=== PATIENT | male | born 1945 | race Caucasian/White ===

== ENCOUNTER → 2023-06-18 07:00 | Outpatient (BNV) | payer MEDICARE, SELFPAY | PROVIDERS: Admitting Provider Family Medicine; Emergency Provider Emergency Medicine; PCP Internal Medicine; Visit Provider Internal Medicine Cardiovascular Disease | DX: I34.0 Nonrheumatic mitral (valve) insufficiency (principal); I34.81 Nonrheumatic mitral (valve) annulus calcification | CPT/HCPCS: 93306 ==

== ENCOUNTER 2023-06-18 08:36 | Inpatient (IN) | payer MEDICARE, SELFPAY ==
[2023-06-18] VITALS (16 sets, daily range): BP systolic 106–142; BP diastolic 39–66; PULSE 55–66; RESP 14–21; TEMP 35.8–36.6; O2SAT 96–98; BMI 25.7; BMI 25.3
--- NOTE | ~2023-06-18 | XR_ITS ---
EXAMINATION: XR CHEST CLINICAL INFORMATION: 69-year-old male with shortness of breath COMPARISON: 04/19/2019 TECHNIQUE: Frontal view of the chest was obtained. FINDINGS: Patient is status post median sternotomy for CABG. There is mild cardiomegaly. There is low lung volume bilaterally with vascular redistribution and there is blunting of left costophrenic angle due to small pleural effusion. XR/XR chest 1V IMPRESSION: CHF with small pleural effusions.
--- NOTE | 2023-06-18 07:00 | CA_ITS ---
Transthoracic Echocardiogram Patient (Last, First, Middle): Allan Diana, Gender: Male Date of : 1945 Age: 77 Procedure Date: 06/18/2023 Procedure Type: Transthoracic Echocardiogram Location: ER Height: 172.72 cm Weight: 81.19 kg BSA: 1.95 m2 Heart Rate: 64 bpm BP: 120 / 52 mmHg Systems Admin: SB Referring MD: Joni Encarnacion MD Symptoms: known CHF, acute exacerbation, Study Quality: Adequate w contrast ECG Rhythm: Sinus Conclusions: - 1. Normal LV ejection fraction 55-60% with grade 3 diastolic dysfunction 2. At least mildly dilated left atrium 3. Severe mitral calcification with mild mitral regurgitation 4. No gross pericardial effusion Findings Procedure Information Contrast agent, definity, is being given per protocol without apparent complications. Left Ventricle Normal left ventricular size and systolic function. There is mildly increased left ventricular wall thickness. The visually estimated ejection fraction is between 55-60%. Spectral Doppler is indicative of a restrictive filling pattern. E/E prime ratio is >15, consistent with elevated filling pressures. Evidence suggests grade III (severe) diastolic dysfunction. Wall Motion Rest Echo Findings The basal inferior and basal inferoseptal segments are akinetic. All other scored wall segments showed normal motion. Right Ventricle Normal right ventricular cavity size. There is moderate to severely decreased right ventricular systolic function. Atria The left atrium is mildly dilated. Interatrial shunt cannot be excluded. The right atrium is normal in size. Aortic Valve There is mild calcification of the aortic valve. There is no aortic valve stenosis. There is no aortic valve regurgitation. Mitral Valve There is mild anterior and severe posterior mitral leaflet thickening. The posterior mitral leaflet is immobile. There is severe mitral annular calcification. There is mild mitral valve regurgitation. There is no mitral valve stenosis. Pulmonic Valve The pulmonic valve is likely normal. There is trace to mild pulmonic valve regurgitation. Tricuspid Valve Normal tricuspid valve structure. There is mild tricuspid valve regurgitation. Great Vessels All visible segments of the aorta are normal in size. The pulmonary artery was not well visualized. There is no dilatation of the ascending aorta. Venous The inferior vena cava was not well visualized. Pericardium/Pleural There is no evidence of pericardial effusion. Prior Study Comparison Changes noted compared to prior study dated: 04/20/2019. IVC could not be visualized on this study and therefore RV systolic pressures are difficult control. Mitral regurgitation appears to be mild. Measurements 2D Linear Measurements IVSd: 1.09 0.6-0.9/0.6-1.0 cm LVIDd: 5.02 3.9-5.3/4.2-5.9 cm LVIDd Index: 2.57 2.4-3.2/2.2-3.1 cm/m2 LVIDs: 3.20 2.0-3.6 cm LVPWd: 0.58 0.7-1.1 cm LA Diam: 5.20 2.7-3.8/3.0-4.0 cm LAIDs Index: 2.67 1.5-2.3 cm/m2 LV Mass: 179.83 67-162/88-224 g LV Mass Index: 92.22 43-95/49-115 g/m2 LVOT Diam: 2.10 3.0+(-)1.3 cm 2D Systolic Function EF 4C: 54.10 >55% EF 2C: 57.80 >55% EF BiP: 57.90 >55% Mitral Valve MV VTI: 0.39 MV Pk Jamie: 1.48 MV Mn Jamie: 0.66 MV Pk Grad: 9.00 MV Mn Grad: 2.00 MV Pk E: 1.51 MV PK A: 0.52 MV Decel Time: 247.00 E/A: 2.90 E'Lateral: 8.78 E'Medial: 4.56 E/E' Med: 33.10 E/E' Lat: 17.20 PHT: 72.00 MVA PHT: 3.06 MVA Continuity: 1.52 Decel Queens: 6.10 Aortic Valve AoV Pk Jamie: 1.11 AoV Mn Jamie: 0.81 AoV VTI: 0.24 AoV Pk Grad: 5.00 Aov Mn Grad: 3.00 DORON Cont.VTI: 2.51 LVOT LVOT Pk Jamie: 0.82 LVOT Mn Jamie: 0.56 LVOT VTI: 0.17 LVOT Pk Grad: 3.00 LVOT Mn Grad: 2.00 LVOT Diam: 2.10 LVOT Area: 3.46 Diastolic Function MV Pk E: 1.51 MV Pk A: 0.52 E/A: 2.90 E'Medial: 4.56 E/E' Med: 33.10 E' Laterial: 8.78 E/E' Lat: 17.20 Right Ventricle TAPSE (mm): 9.10 TVS' Jamie: 6.60 Tricuspid Valve TR Pk Jamie: 3.02 TR Pk Grad: 36.00 Great Vessels Aorta Sinus of Valsalva: 3.00 2.0-3.5 cm Ao Asc: 2.80 2.1-3.4 cm Pulmonary Valve PV Pk Jamie: 0.73 Peak PV Grad: 2.00 Updated in Other Vendor System with Status of Final Moses Joel MD electronically signed on 06/18/2023 3:44:31 PM with status of Final
--- NOTE | 2023-06-18 08:54 | ECG_ITS ---
Test Reason : SOB Blood Pressure : / mmHG Vent. 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
--- NOTE | 2023-06-18 09:26 | ED_ITS ---
HPI - General Adult General Chief complaint: Recheck/Abnormal Lab/Rx Stated complaint: heart failure Time Seen by Provider: 06/18/23 08:50 Source: patient and family Mode of arrival: ambulatory Limitations: no limitations History of Present Illness HPI narrative: patient sent in for weakness, he states that his doctor stated that he is in heart failure and renal failure. INR yesterday was 5. Patient has refused colonoscopy despite needing multiple blood transfusions Onset (ago): day(s) Severity: moderate Related Data Home Medications Medication Instructions Recorded Confirmed atorvastatin 40 mg tablet 40 mg PO DAILY 06/18/23 06/18/23 clopidogrel 75 mg tablet 75 mg PO DAILY 06/18/23 06/18/23 furosemide 20 mg tablet 40 mg PO BID 06/18/23 06/18/23 glipizide 5 mg tablet 5 mg PO BID 06/18/23 06/18/23 lisinopril 40 mg tablet 40 mg PO DAILY 06/18/23 06/18/23 metformin 500 mg tablet 1,500 mg PO DAILY 06/18/23 06/18/23 metoprolol tartrate 25 mg tablet 75 mg PO BID 06/18/23 06/18/23 spironolactone 25 mg tablet 25 mg PO BID 06/18/23 06/18/23 warfarin 2.5 mg tablet 2.5 mg PO SUMOTUWEFR@1800 06/18/23 06/18/23 warfarin 2.5 mg tablet 5 mg PO THSA@1800 06/18/23 06/18/23 Allergies Allergy/AdvReac Type Severity Reaction Status Date / Time lactose AdvReac Unknown GI Verified 06/18/23 08:45 FLATULANCE (LACTOSE INTOLERANCE) Review of Systems 2 Review of Systems: Yes all other systems are reviewed and are negative Neurologic: Denies Sensory deficit (Neuro) [facility] Social History Social History Household Members: None Housing: House Do you presently have visiting nurse or other home services: No Alcohol intake: former Patient Tobacco Use Status: Former Tobacco user Advance Directives Date on File: 06/18/23 service: No Physical Exam ED Vital Signs: Vital Signs - 24 hr 06/18/23 08:48 06/18/23 09:50 Temperature 97.5 F Pulse Rate 63 61 Respiratory Rate 18 18 Blood Pressure 111/45 L 106/43 L Pulse Oximetry 96 97 Oxygen Delivery Method Room Air Room Air BMI result Body Mass Index 25.7 Const Other: male, very pale, appearing chronically ill Nutritional Appearance: average body habitus Orientation/consciousness: oriented to person and patient oriented x3 Limitations: no limitations HENMT Head: Yes normal to inspection Ears: external ears normal General nose exam: Normal external nose present Mouth: Normal oral and palatal mucosa present and oropharynx normal Throat: Yes posterior oropharynx normal Eyes General: appearance normal, both eyes and all related structures Neck Neck: Yes normal visual inspection Chest Chest palpation & inspection: normal inspection of the chest Resp Auscultation: clear to auscultation bilaterally Cardio Jugular venous distension: no JVD Rate: regular rate Rhythm: regular rhythm Heart sounds: S1 normal heart sound present and S2 normal heart sound present GI Inspection: Yes normal to inspection Palpation (GI): Soft to palpation, nontender and No hepatosplenomegaly present Auscultation: normal bowel sounds Other: rectal heme negative Skin General skin exam: no rashes or lesions noted Neuro General: oriented to person and patient oriented x3 Cranial nerves: Yes CN's II-XII intact bilaterally Motor exam (neuro): 5/5 motor strength present throughout Sensory Exam: No Sensory deficit (Neuro) Extrem Other: right BKA, left 3+ edema which patient states is better than usual Psych Appearance: grossly normal Course Reevaluation(s) Reevaluation #1: Patient with worsening anemia, and worsening renal function, no evidence of GI bleed, will transfuse and admit Time: 12:02 Reevaluation #2: I spent 40 minutes of critical care, with interventions, assessments, speaking to patient, consultants, and family. Time: 12:13 Medications Administered Discontinued Medications Generic Name Dose Route Start Last Admin Trade Name Freq PRN Reason Stop Dose Admin Atorvastatin Calcium 40 mg 06/19/23 09:00 06/20/23 09:27 Atorvastatin Calcium 40 Mg Tablet PO 40 mg DAILY JOYCE Administration Clopidogrel Bisulfate 75 mg 06/19/23 09:00 06/20/23 09:27 Clopidogrel Bisulfate 75 Mg Tablet PO 75 mg DAILY JOYCE Administration Furosemide 20 mg 06/18/23 18:00 06/20/23 09:27 Furosemide 20 Mg/2 Ml Vial IVPUSH 20 mg BID@0900,1800 JOYCE Administration Protocol Sodium Chloride 100 mls @ 100 mls/hr 06/18/23 10:09 06/18/23 14:17 Ns IV 06/18/23 11:08 Infused ONCE ONE Infusion Sodium Chloride 100 mls @ 100 mls/hr 06/18/23 10:09 06/18/23 13:06 Ns IV 06/18/23 11:08 Not Given ONCE ONE Insulin Human Lispro 0 unit 06/19/23 16:30 06/20/23 12:17 Insulin Lispro 100 Unit/Ml 3 Ml Vial SUBCUT Not Given QIDACHS [facility] Protocol Melatonin 6 mg 06/18/23 22:26 06/19/23 20:57 Melatonin 3 Mg Tablet PO 6 mg BEDTIME PRN Administration Insomnia Sodium Chloride 3 ml 06/18/23 16:00 06/20/23 09:27 0.9 % Sodium Chloride Flush 3 Ml Syringe IVFLUSH 3 ml QSHIFT JOYCE Administration Spironolactone 25 mg 06/18/23 17:00 06/20/23 09:26 Spironolactone 25 Mg Tablet PO 25 mg BIDWM JOYCE Administration Protocol Medical Decision Making Differential Diagnosis Differential Diagnoses: The differential diagnosis associated with the presentation includes (anemia, GI bleed, renal failure, CHF were all considered) Admission/Observation Consideration of admission/observation: Escalation of care including admission/observation considered (upon arrival patient was considered for admission) Consult Healthcare Provider Management of the patient was discussed with: Hospitalist Lab Data MDM Lab Attestation statement: I reviewed the patient's lab results. (anemia worsening renal failure) 06/20/23 08:53 06/20/23 08:53 Labs: Lab Results 06/18/23 06/18/23 Range/Units 09:38 10:46 WBC 11.9 H (4.8-10.8) X10*3/uL RBC 2.27 L (4.60-5.80) X10*6/uL Hgb 6.8 L* (14.0-18.0) g/dl Hct 21.6 L (42.0-52.0) % MCV 95.2 (80.0-98.0) fL MCH 30.0 (27.0-33.0) pg MCHC 31.5 (31.0-36.0) g/dl RDW 16.0 (11.0-16.0) % Plt Count 266 (160-400) X10*3/uL MPV 12.0 (9.4-12.4) fL Immature Gran % (Auto) 0.7 H (0.0-0.4) % Neut % (Auto) 85.8 H (45-73) % Lymph % (Auto) 5.2 L (20-40) % [place] % (Auto) 6.9 (2-11) % Eos % (Auto) 1.2 (0-4) % Baso % (Auto) 0.2 (0-2) % Lymph # (Auto) 0.6 L (1.2-4.9) X10*3/uL [place] # (Auto) 0.8 (0.1-1.2) X10*3/uL Eos # (Auto) 0.1 (0.0-0.4) X10*3/uL Baso # (Auto) 0.0 (0.0-0.2) X10*3/uL Abs Immat Gran (auto) 0.08 H (0.00-0.03) X10*3/uL Absolute Neuts (auto) 10.2 H (2.0-8.3) x10*3/uL Absolute Nucleated RBC 0.000 (0.0-0.012) X10*3/uL Nucleated RBC % (auto) 0.0 (0.0-0.2) /100WBC Smear Path Review PT 65.0 H (11.1-13.3) SEC INR 5.3 H* (0.9-1.1) Sodium 130 L (135-145) mmol/L Potassium 5.0 (3.3-5.1) mmol/L Chloride 102 (96-108) mmol/L Carbon Dioxide 20 L (22-29) mmol/L Anion Gap 13 (12-20) BUN 90 H (9-16) mg/dL Creatinine 2.90 H (0.5-1.4) mg/dL Estim Creat Clear Calc 21.6 Estimated GFR 21 Random Glucose 141 H (60-115) mg/dL Calcium 10.3 H (8.4-10.2) mg/dL Troponin I High Sens 82.7 H 89.6 H (<3.5-35.0) ng/L B-Natriuretic Peptide 1403 H (<100) pg/mL Blood Type O Negative Antibody Screen NEGATIVE Crossmatch See Detail Independent Interpretation I performed an independent interpretation of an: EKG (sinus 60, deep inverted twaves inferiorly) and Plain X-Ray (no chf or infiltrate) Independent Historian Clinical information obtained from an independent historian. History obtained from or confirmed by: Spouse External Record Review External record reviewed: Outpatient record ([facility] records reviewed) Chronic Conditions Patient?s care impacted by: Diabetes, Hypertension and Other (vascular disease) Discharge Plan Discharge Clinical Impression: Anemia, Acute renal failure, Anticoagulant overdose Patient Disposition: Admitted As Inpatient Interventions: Admission Worksheet (ED) Last Done: 06/18/23 16:55 Discharge Date/Time: 06/18/23 16:55
[2023-06-18 09:44] LABS: MANUAL DIFF FLAG NO
--- NOTE | 2023-06-18 09:50 | PC.NURSE ---
pt is alert and oriented, skin very pale and sclera also appears pale, respirations even and unlabored, pt denies pain but reports feeling very sob with minim activity and just feeling generally weak, vs stable and ns on the monitor
[2023-06-18 10:03] LABS: Basophils Percent Auto 0.2 % (0-2); Eosinophils Absolute Auto 0.1 X10*3/uL (0.0-0.4); Eosinophils Percent Auto 1.2 % (0-4); Hematocrit 21.6 % (42.0-52.0); Imm Gran Abs Auto 0.08 X10*3/uL (0.00-0.03); Imm Gran Pct Auto 0.7 % (0.0-0.4); Lymphocytes Absolute Auto 0.6 X10*3/uL (1.2-4.9); Lymphocytes Percent Auto 5.2 % (20-40); Mean Corpuscular HGB Conc 31.5 g/dl (31.0-36.0); Mean Corpuscular Volume 95.2 fL (80.0-98.0); Monocytes Absolute Auto 0.8 X10*3/uL (0.1-1.2); Monocytes Percent Auto 6.9 % (2-11); Neutrophils Absolute Auto 10.2 x10*3/uL (2.0-8.3); Neutrophils Percent Auto 85.8 % (45-73); Platelet Count 266 X10*3/uL (160-400); Red Blood Count 2.27 X10*6/uL (4.60-5.80); White Blood Count 11.9 X10*3/uL (4.8-10.8)
[2023-06-18 10:06] LABS: Hemoglobin 6.8 g/dl (14.0-18.0)
[2023-06-18 10:11] LABS: Anion Gap 13 (12-20); Blood Urea Nitrogen 90 mg/dL (9-16); Calcium 10.3 mg/dL (8.4-10.2); Carbon Dioxide 20 mmol/L (22-29); Chloride 102 mmol/L (96-108); Creatinine Clr Calc Pharmacy 21.6; Estimated Glomerular Filt Rate 21; Glucose Random 141 mg/dL (60-115); Sodium 130 mmol/L (135-145)
[2023-06-18 10:17] LABS: B Type Natriuretic Peptide 1403 pg/mL (<100)
[2023-06-18 10:19] LABS: Troponin-I High Sensitivity 82.7 ng/L (<3.5-35.0)
[2023-06-18 11:18] LABS: Troponin-I High Sensitivity 89.6 ng/L (<3.5-35.0)
[2023-06-18 11:46] LABS: INTERNATIONAL NORM RATIO 5.3 (0.9-1.1)
--- NOTE | 2023-06-18 12:05 | PC.NURSE ---
MD wei notified need consent prior to transfusions. MD given form and will come to bedside. pt talking, aox4. reports intermittent dizziness/SOB. talks full sentences. legs elevated, repositioned off side. pale. MD wei completed rectal exam at bedside- per MD negative occult.
--- NOTE | 2023-06-18 12:08 | PC.NURSE ---
MD Encarnacion at bedside. 106/39. Aware of recent VS
--- NOTE | 2023-06-18 12:11 | PC.NURSE ---
Per MD Encarnacion not to give 2 units of blood- only to give 1- MD will d/c 2nd unit
--- NOTE | 2023-06-18 12:38 | PM.IMHP ---
History of Present Illness Date of Service: 06/18/23 Chief Complaint: shortness of breath, abnormal labs The patient is a 77 year old male witha PMH of DM, CAD s/p CABG, HTN, HLD, CKD, R BKA, chronic anemia, afib/flutter on coumadin, HFpEF who presents to the ED after he was directed to do so by his outpatient providers. The patient reports that over the last 4-5 days [employer]UDGE [employer]PER[employer], he has had increasing shortness of breath with exretion and eventually at rest. He typically is able to ambulate at home without significant SANTOS, however, he states he has been getting SOB with minial distances. He reports chronic orthopnea and he sleeps in a recliner. He reports about a 12 lb weight gain over the last 2 weeks. The patient had outpatient labs comlpeted yesterday and this showed abnormal h/h and hence he was directed to the ED. Upon further questioning the patient endorses that he had several episodes of epistaxis this week, which were self limited. He denies any chest pain. He reports a non-productive cough. He denies any fevers or chills. He does report generalized weakness and easily fatiguability. In the ED, repeat labs confirmed anemia - with h/h 6.8/21.6; INR >5; CXR showing CHF; BNP elevated >1000; SCr >2.9 (around 1 in 2018). He has had 2 PRBCs ordered in the ED and now will be admitted for further care. Review of Systems Review of Systems: Negative except HPI/interval history. [facility] Social History Alcohol intake: former Smoked in Last 30 Days: No Use of substances other than those prescribed or required for medical reasons: No Advance Directives: Yes Advance Directives on File: No Meds Allergies Allergy/AdvReac Type Severity Reaction Status Date / Time lactose AdvReac Unknown GI Verified 06/18/23 08:45 FLATULANCE (LACTOSE INTOLERANCE) Physical Exam Vital Signs and Narrative: Vital Signs: Last Vital Signs Temp 97.6 F 06/18/23 12:00 Pulse 58 06/18/23 12:00 Resp 17 06/18/23 12:00 BP 106/39 L 06/18/23 12:00 Pulse Ox 97 06/18/23 12:00 O2 Del Method Room Air 06/18/23 12:00 BMI result Body Mass Index 25.7 Const: Other: Constitutional - Awake and Alert, No apparent distress Eyes - PERRLA, EOMI, pale sclera Cardiovascular - S1S2, RRR, LLE edema; +JVD Respiratory - Normal lung expansion, Normal respiratory effort, No respiratory distress, CTA bilaterally Gastrointestinal - NT / ND; +BS; No rebound or guarding - No CVA tenderness Extremities - no calf tenderness bilaterally, no swelling Musculoskeletal - R BKA with prosthesis; LLE swelling Skin - Warm/Dry Neurological - Alert & oriented x3, No focal deficit Psychological - Appropriate affect Results Labs 06/18/23 09:38 06/18/23 09:38 Labs: Laboratory Results - last 24 hr 06/18/23 06/18/23 09:38 10:46 MCV 95.2 MCH 30.0 MCHC 31.5 RDW 16.0 Plt Count 266 MPV 12.0 Immature Gran % (Auto) 0.7 H Neut % (Auto) 85.8 H Lymph % (Auto) 5.2 L [place] % (Auto) 6.9 Eos % (Auto) 1.2 Baso % (Auto) 0.2 Lymph # (Auto) 0.6 L [place] # (Auto) 0.8 Eos # (Auto) 0.1 Baso # (Auto) 0.0 Abs Immat Gran (auto) 0.08 H Absolute Neuts (auto) 10.2 H Absolute Nucleated RBC 0.000 Nucleated RBC % (auto) 0.0 PT 65.0 H INR 5.3 H* Anion Gap 13 Estim Creat Clear Calc 21.6 Estimated GFR 21 Random Glucose 141 H Calcium 10.3 H B-Natriuretic Peptide 1403 H Blood Type O Negative Antibody Screen NEGATIVE Crossmatch See Detail Imaging Radiologist's Impressions: Impressions Chest X-Ray 06/18/23 10:31 IMPRESSION: CHF with small pleural effusions. Assessment and Plan (1) Anemia: Status: Acute (2) Acute renal failure: Status: Acute Plan The patient is a 77 year old male witha PMH of DM, CAD s/p CABG, HTN, HLD, CKD, R BKA, chronic anemia, afib/flutter on coumadin, HFpEF who is being admitted for anemia and acute CHF. 1. Acute CHF, unspecified pt with elevated BNP, CXR showing congestion, +LE edema/JVD; progressive SOB and orthopnea, weight gain Last echo from 2019 shows preserved LVEF will commence diuresis -- Lasix 20mg BID I/O repeat Echo if not recently completed as outpatient 2. Acute on chronic blood loss anemia Pt endorses several episodes of epistaxis this week; also has suspected chronic GI loss and has been worked up in the past give 1 unit PRBC no evidence of active bleeding at this time 3. Acute kidney injury last SCr around 2 (per [facility] records); now 2.9 possibly cardiorenal trend and if worsens, consider nephrology consult 3. Supratherapeutic INR on coumadin for a. fib/flutter hold coumadin 4. HTN BP soft, hold antihypertensives for now 5. DM med rec pending, resume home meds as appropriate diabetic diet Med rec pending -- continue home meds as appropriate. Full Code DVT pptx, on coumadin Endorses his sister as HCP Patient with multifactorial dyspnea including acute CHF and anemia, MERRY, requiring PRBCs, IV diuresis and speacilty evaluation, hence admission expected to span 2 midnights and therefore, will be admitted as inpatient. Quality Stroke Does the patient have a stroke diagnosis?: No VTE Prior VTE?: No VTE Risk Level:: Medical - moderate - high VTE Device Contraindication: Treatment Not Indicated VTE Drug Contraindication: Treatment Not Indicated
--- NOTE | 2023-06-18 13:12 | PC.NURSE ---
blood consent obtained by MD Chisholm prior to admin of blood- placed in chart- witnessed by this RN. Blood being started after VS w/Tavia RN. Pt aox4. Jacques, coop. 2nd PIV placed- c/d/i.
--- NOTE | 2023-06-18 13:31 | PC.NURSE ---
no sx rxn from transfusion.
--- NOTE | 2023-06-18 13:44 | PHA.MEDREC ---
Pharmacy Consult ? Medication Reconciliation Pharmacy has completed the medication reconciliation. Spoke to patient and verified medication list.
[2023-06-18 13:54] LABS: Glucose, Whole Blood 58 mg/dL (60-115)
--- NOTE | 2023-06-18 13:55 | PC.NURSE ---
pt given juice/food for poc 50s- MD Encarnacion aware- sitting in bed. no sx tranfusion rxn. talking w/o distress. +CMS. aox4. MD Encarnacion messaged re poc
--- NOTE | 2023-06-18 14:14 | PC.NURSE ---
pt repositioned again in bed. offered food- pt drank gingerale. offered sandwich- declined
--- NOTE | 2023-06-18 14:39 | PC.NURSE ---
US at bedide. pt given gingerale
--- NOTE | 2023-06-18 15:33 | PC.NURSE ---
aox4. calm coop. in chair. no distress. no sx transusion rxn. ate lunch well.
--- NOTE | 2023-06-18 16:35 | PC.NURSE ---
calling report at this time. pt relaxing in chair at bedside w/no sx transfusion rxn.
--- NOTE | 2023-06-18 16:40 | PC.NURSE ---
blood done- 350c given. VSS. pt going up on telemetry with transporter. no distress. no sx reaction.
[2023-06-18 16:42] LABS: Glucose, Whole Blood 147 mg/dL (60-115)
[2023-06-18] MEDS: 0.9 % Sodium Chloride Flush 3 ML SYRINGE IVFLUSH ×2 (16:44→23:51)
--- NOTE | 2023-06-18 16:55 | PC.NURSE ---
pt leaving floor at this time. regular respirations. temp normal. no distress.
[2023-06-18] MEDS: Furosemide 20 MG/2 ML VIAL IVPUSH (17:43)
[2023-06-18] MEDS: Spironolactone 25 MG TABLET PO (17:43)
[2023-06-18 23:35] LABS: Glucose, Whole Blood 91 mg/dL (60-115)
[2023-06-18] MEDS: Melatonin 3 MG TABLET 6 MG PO (23:50)
[2023-06-19 03:36] VITALS: BP 116/57; PULSE 58; RESP 20; TEMP 36.1; O2SAT 97
[2023-06-19 06:20] LABS: Anion Gap 13 (12-20); Blood Urea Nitrogen 88 mg/dL (9-16); Calcium 10.3 mg/dL (8.4-10.2); Carbon Dioxide 20 mmol/L (22-29); Chloride 105 mmol/L (96-108); Creatinine Clr Calc Pharmacy 25.8; Estimated Glomerular Filt Rate 26; Glucose Random 98 mg/dL (60-115); Potassium 4.5 mmol/L (3.3-5.1); Sodium 133 mmol/L (135-145)
[2023-06-19 06:30] LABS: Prothrombin Time 65.5 SEC (11.1-13.3)
[2023-06-19 06:51] LABS: INTERNATIONAL NORM RATIO 5.4 (0.9-1.1)
[2023-06-19 07:20] VITALS: BP 140/57; PULSE 68; RESP 16; TEMP 36.2; O2SAT 97
[2023-06-19 07:28] LABS: Glucose, Whole Blood 97 mg/dL (60-115)
[2023-06-19 08:04] LABS: MANUAL DIFF FLAG NO
--- NOTE | 2023-06-19 08:07 | MHC.CM.PN ---
IMM 06/19. Pt lives at home self-care, uses a cane, also has a walker and wheelchair if needed. Pt reports his sister comes over 1x/day to check on him. Returning home is the goal, pts sister will transport him home. Pt reports his sister is HCP, copy requested. PCP: Dr. Pb Lowe
[2023-06-19 08:14] LABS: Basophils Percent Auto 0.3 % (0-2); Eosinophils Absolute Auto 0.2 X10*3/uL (0.0-0.4); Eosinophils Percent Auto 2.1 % (0-4); Hematocrit 26.9 % (42.0-52.0); Hemoglobin 8.5 g/dl (14.0-18.0); Imm Gran Abs Auto 0.06 X10*3/uL (0.00-0.03); Imm Gran Pct Auto 0.5 % (0.0-0.4); Lymphocytes Absolute Auto 0.7 X10*3/uL (1.2-4.9); Lymphocytes Percent Auto 6.2 % (20-40); Mean Corpuscular HGB Conc 31.6 g/dl (31.0-36.0); Mean Corpuscular Hemoglobin 29.5 pg (27.0-33.0); Mean Corpuscular Volume 93.4 fL (80.0-98.0); Mean Platelet Volume 11.8 fL (9.4-12.4); Monocytes Absolute Auto 0.9 X10*3/uL (0.1-1.2); Monocytes Percent Auto 7.8 % (2-11); Neutrophils Absolute Auto 9.3 x10*3/uL (2.0-8.3); Neutrophils Percent Auto 83.1 % (45-73); Platelet Count 266 X10*3/uL (160-400); Red Blood Count 2.88 X10*6/uL (4.60-5.80); White Blood Count 11.2 X10*3/uL (4.8-10.8)
[2023-06-19 08:26] LABS: Anion Gap 14 (12-20); Blood Urea Nitrogen 86 mg/dL (9-16); Calcium 10.7 mg/dL (8.4-10.2); Carbon Dioxide 22 mmol/L (22-29); Chloride 105 mmol/L (96-108); Estimated Glomerular Filt Rate 27; Glucose Random 102 mg/dL (60-115); Potassium 4.7 mmol/L (3.3-5.1); Sodium 136 mmol/L (135-145)
[2023-06-19] MEDS: Atorvastatin Calcium 40 MG TABLET PO (09:49)
[2023-06-19] MEDS: Spironolactone 25 MG TABLET PO ×2 (09:49→17:39)
[2023-06-19] MEDS: Furosemide 20 MG/2 ML VIAL IVPUSH ×2 (09:50→17:39)
[2023-06-19] MEDS: 0.9 % Sodium Chloride Flush 3 ML SYRINGE IVFLUSH ×2 (09:50→17:39)
--- NOTE | 2023-06-19 10:42 | HO.PM.IMPN ---
Subjective Subjective Date of Service: 06/19/23 Review of Systems Follow-up acute congestive heart failure and anemia Denies shortness breath, chest pain, nausea, vomiting, diarrhea Physical Exam Vital Signs: Vital Signs: Last Vital Signs Temp 97.2 F 06/19/23 07:20 Pulse 68 06/19/23 07:20 Resp 16 06/19/23 07:20 BP 140/57 H 06/19/23 07:20 Pulse Ox 97 06/19/23 07:20 O2 Del Method Room Air 06/19/23 07:20 BMI result Body Mass Index 25.3 Appearing in no acute distress lung sounds are clear to auscultation heart regular rate rhythm, clear S1, S2 positive bowel sounds, abdomen is soft, nontender neuro patient is alert x3, no focal deficits Objective Data Active Medications Acetaminophen (Acetaminophen 325 Mg Tablet) 650 mg PO Q6H PRN PRN Reason: Pain, Mild (Pain Scale 1-3) Atorvastatin Calcium (Atorvastatin Calcium 40 Mg Tablet) 40 mg PO DAILY [facility] Last Admin: 06/19/23 09:49 Dose: 40 mg Documented By: SACHIN Clopidogrel Bisulfate (Clopidogrel Bisulfate 75 Mg Tablet) 75 mg PO DAILY [facility] Furosemide (Furosemide 20 Mg/2 Ml Vial) 20 mg IVPUSH BID@0900,1800 [facility]; Protocol Last Admin: 06/19/23 09:50 Dose: 20 mg Documented By: SACHIN Melatonin (Melatonin 3 Mg Tablet) 6 mg PO BEDTIME PRN PRN Reason: Insomnia Last Admin: 06/18/23 23:50 Dose: 6 mg Documented By: JOHNNIE Sodium Chloride (0.9 % Sodium Chloride Flush 3 Ml Syringe) 3 ml IVFLUSH QSHIFT [facility] Last Admin: 06/19/23 09:50 Dose: 3 ml Documented By: SACHIN Spironolactone (Spironolactone 25 Mg Tablet) 25 mg PO BIDWM [facility]; Protocol Last Admin: 06/19/23 09:49 Dose: 25 mg Documented By: SACHIN Labs 06/19/23 05:27 06/19/23 08:06 Labs: Laboratory Results - last 24 hr 06/18/23 06/18/23 06/18/23 09:38 10:46 13:51 MCV MCH MCHC RDW Plt Count MPV Immature Gran % (Auto) Neut % (Auto) Lymph % (Auto) Gila % (Auto) Eos % (Auto) Baso % (Auto) Lymph # (Auto) Gila # (Auto) Eos # (Auto) Baso # (Auto) Abs Immat Gran (auto) Absolute Neuts (auto) Absolute Nucleated RBC Nucleated RBC % (auto) Hold Purple Top PT 65.0 H INR 5.3 H* Anion Gap Estim Creat Clear Calc Estimated GFR POC Glucose 58 L* Random Glucose Calcium Blood Type O Negative Antibody Screen NEGATIVE Crossmatch See Detail 06/18/23 06/18/23 06/19/23 16:39 23:31 05:27 MCV 93.4 MCH 29.5 MCHC 31.6 RDW 16.0 Plt Count 266 MPV 11.8 Immature Gran % (Auto) 0.5 H Neut % (Auto) 83.1 H Lymph % (Auto) 6.2 L Gila % (Auto) 7.8 Eos % (Auto) 2.1 Baso % (Auto) 0.3 Lymph # (Auto) 0.7 L Gila # (Auto) 0.9 Eos # (Auto) 0.2 Baso # (Auto) 0.0 Abs Immat Gran (auto) 0.06 H Absolute Neuts (auto) 9.3 H Absolute Nucleated RBC 0.000 Nucleated RBC % (auto) 0.0 Hold Purple Top SEE NOTE PT 65.5 H INR 5.4 H* Anion Gap 13 Estim Creat Clear Calc 25.8 Estimated GFR 26 POC Glucose 147 H 91 Random Glucose 98 Calcium 10.3 H Blood Type Antibody Screen Crossmatch 06/19/23 06/19/23 07:22 08:06 MCV MCH MCHC RDW Plt Count MPV Immature Gran % (Auto) Neut % (Auto) Lymph % (Auto) Gila % (Auto) Eos % (Auto) Baso % (Auto) Lymph # (Auto) Gila # (Auto) Eos # (Auto) Baso # (Auto) Abs Immat Gran (auto) Absolute Neuts (auto) Absolute Nucleated RBC Nucleated RBC % (auto) Hold Purple Top PT INR Anion Gap 14 Estim Creat Clear Calc 27.0 Estimated GFR 27 POC Glucose 97 Random Glucose 102 Calcium 10.7 H Blood Type Antibody Screen Crossmatch Assessment and Plan (1) Anemia: Status: Acute Plan The patient is a 77 year old male with a PMH of DM, CAD s/p CABG, HTN, HLD, CKD, R BKA, chronic anemia, afib/flutter on coumadin, HFpEF who is being admitted for anemia and acute CHF. Acute on chronic HFpEF elevated BNP, CXR showing congestion, +LE edema/JVD; progressive SOB and orthopnea, weight gain I/O echo with EF 55-60% continue Lasix IV 20mg BID Acute on chronic blood loss anemia Pt endorses several episodes of epistaxis this week; also has suspected chronic GI loss and has been worked up in the past s/p 1 unit PRBC no evidence of active bleeding at this time Acute kidney injury last SCr around 2 (per [facility] records); now 2.3 possibly cardiorenal trend and if worsens, consider nephrology consult Supratherapeutic INR 5.4 on coumadin for a. fib/flutter hold coumadin HTN BP soft, hold antihypertensives for now DM 2 ss, ada diet Full Code DVT pptx, on coumadin, held for now due to anemia and supratherapeutic inr Attending Dr. Landon Endorses his sister as HCP Patient with multifactorial dyspnea including acute CHF and anemia, MERRY, requiring PRBCs, IV diuresis and speacilty evaluation, hence admission expected to span 2 midnights and therefore, will be admitted as inpatient. Quality Stroke Does the patient have a stroke diagnosis?: No VTE Prior VTE?: No VTE Risk Level:: Medical - moderate - high VTE Device Contraindication: Treatment Not Indicated VTE Drug Contraindication: Treatment Not Indicated
[2023-06-19 11:16] VITALS: BP 140/59; PULSE 71; RESP 16; TEMP 36.2; O2SAT 98
[2023-06-19 11:19] LABS: Glucose, Whole Blood 183 mg/dL (60-115)
[2023-06-19 15:12] VITALS: BP 131/53; PULSE 67; RESP 18; TEMP 36.4; O2SAT 96
[2023-06-19 16:15] LABS: Glucose, Whole Blood 203 mg/dL (60-115)
[2023-06-19 20:00] VITALS: BP 139/56; PULSE 72; RESP 18; TEMP 36.3; O2SAT 97
[2023-06-19] MEDS: Melatonin 3 MG TABLET 6 MG PO (20:57)
[2023-06-19 21:23] LABS: Glucose, Whole Blood 178 mg/dL (60-115)
[2023-06-20] VITALS: BP 140/58; PULSE 70; RESP 20; TEMP 36.1; O2SAT 96
[2023-06-20 03:28] VITALS: BP 143/60; PULSE 72; RESP 20; TEMP 36.2; O2SAT 99
--- NOTE | 2023-06-20 06:15 | PC.NURSE ---
pt declined lab draw this am, rn spoke with pt in regards to labs to monitor progress of medication, pt continues to decline.
[2023-06-20 07:50] VITALS: BP 155/74; PULSE 82; RESP 18; TEMP 36.5; O2SAT 100
[2023-06-20 08:05] LABS: Glucose, Whole Blood 170 mg/dL (60-115)
[2023-06-20 09:02] LABS: Hematocrit 28.4 % (42.0-52.0); Hemoglobin 9.1 g/dl (14.0-18.0); Mean Corpuscular Hemoglobin 29.7 pg (27.0-33.0); Mean Corpuscular Volume 92.8 fL (80.0-98.0); Mean Platelet Volume 10.9 fL (9.4-12.4); Platelet Count 283 X10*3/uL (160-400); Red Blood Count 3.06 X10*6/uL (4.60-5.80); White Blood Count 11.1 X10*3/uL (4.8-10.8)
[2023-06-20 09:17] LABS: Anion Gap 14 (12-20); Blood Urea Nitrogen 74 mg/dL (9-16); Calcium 10.8 mg/dL (8.4-10.2); Carbon Dioxide 24 mmol/L (22-29); Chloride 104 mmol/L (96-108); Creatinine Clr Calc Pharmacy 31.9; Estimated Glomerular Filt Rate 33; Glucose Random 255 mg/dL (60-115); Sodium 137 mmol/L (135-145)
[2023-06-20 09:23] LABS: B Type Natriuretic Peptide 940 pg/mL (<100)
[2023-06-20] MEDS: Spironolactone 25 MG TABLET PO (09:26)
[2023-06-20] MEDS: 0.9 % Sodium Chloride Flush 3 ML SYRINGE IVFLUSH (09:27)
[2023-06-20] MEDS: Furosemide 20 MG/2 ML VIAL IVPUSH (09:27)
[2023-06-20] MEDS: Clopidogrel Bisulfate 75 MG TABLET PO (09:27)
[2023-06-20] MEDS: Atorvastatin Calcium 40 MG TABLET PO (09:27)
--- NOTE | 2023-06-20 10:40 | P.DS_ITS ---
DS: Providers Provider Date of Service: 06/20/23 Date of admission: 06/18/23 12:36 Primary care physician: Pb Lowe MD DS: Diagnosis Discharge Diagnosis (1) Anemia: Status: Acute DS: Summary Hospital Course Hospital Course: The patient is a 77 year old male witha PMH of DM, CAD s/p CABG, HTN, HLD, CKD, R BKA, chronic anemia, afib/flutter on coumadin, HFpEF who presents to the ED after he was directed to do so by his outpatient providers. The patient reports that over the last 4-5 days [employer], he has had increasing shortness of breath with exretion and eventually at rest. He typically is able to ambulate at home without significant SANTOS, however, he states he has been getting SOB with minial distances. He reports chronic orthopnea and he sleeps in a recliner. He reports about a 12 lb weight gain over the last 2 weeks. The patient had outpatient labs comlpeted yesterday and this showed abnormal h/h and hence he was directed to the ED. Upon further questioning the patient endorses that he had several episodes of epistaxis this week, which were self limited. He denies any chest pain. He reports a non-productive cough. He denies any fevers or chills. He does report generalized weakness and easily fatiguability. In the ED, repeat labs confirmed anemia - with h/h 6.8/21.6; INR >5; CXR showing CHF; BNP elevated >1000; SCr >2.9 (around 1 in 2018). He has had 2 PRBCs ordered in the ED and now will be admitted for further care. 69-year-old man treated for acute congestive heart failure treated with IV Lasix, -1.7 L, no shortness of breath noted. Echocardiogram from 06/18/2023 with EF of 55-60% with grade 3 diastolic dysfunction. He should resume his home dose of furosemide 40 mg twice daily and spironolactone 25 mg twice daily. he was also noted to have acute on chronic blood-loss anemia Likely secondary to epistaxis, on warfarin. Patient also had supratherapeutic INR on admission with INR of 5.3, warfarin held and now 3.0 today. this may have been contributing to the epistaxis as well. Patient may resume his Warfarin. He was transfused 1 unit packed red blood cells with good rise of H&H and no noted active bleeding. He had acute kidney injury with baseline around 2, likely cardiorenal syndrome, after diuresis creatinine did come down to 1.97. BNP also trended down. Patient reports feeling good and wanting to go home . Patient will be discharged to resume all of his home medications. Time Attestation Discharge coordination time: Greater than 30 minutes Quality: Safe Use of Opioids Does Pt have an Active Cancer Diagnosis on the Problem List?: No Quality: Stroke Does the patient have a stroke diagnosis?: No Physical Exam Vital Signs: Vital Signs: Last Vital Signs Temp 97.7 F 06/20/23 07:50 Pulse 82 06/20/23 07:50 Resp 18 06/20/23 07:50 BP 155/74 H 06/20/23 07:50 Pulse Ox 100 06/20/23 07:50 O2 Del Method Room Air 06/20/23 07:50 BMI result Body Mass Index 25.3 Appearing in no acute distress head is normocephalic atraumatic eyes pupils are PERRLA sclera is anicteric mouth throat mucous membranes are intact and moist neck is supple no lymphadenopathy, no JVD noted lung sounds are clear to auscultation heart regular rate rhythm, clear S1, S2 positive bowel sounds, abdomen is soft, nontender neuro patient is alert x3, no focal deficits DS: Data Data Completed and Pending Labs on day of discharge: Laboratory Results - last 24 hr 06/19/23 06/19/23 06/19/23 11:01 16:08 21:17 WBC RBC Hgb Hct MCV MCH MCHC RDW Plt Count MPV Absolute Nucleated RBC Nucleated RBC % (auto) PT INR Sodium Potassium Chloride Carbon Dioxide Anion Gap BUN Creatinine Estim Creat Clear Calc Estimated GFR POC Glucose 183 H 203 H 178 H Random Glucose Calcium B-Natriuretic Peptide 06/20/23 06/20/23 06/20/23 07:52 08:53 08:53 WBC 11.1 H Cancelled RBC 3.06 L Hgb Hct MCV MCH MCHC RDW Plt Count MPV Absolute Nucleated RBC Nucleated RBC % (auto) PT INR Sodium Potassium Chloride Carbon Dioxide Anion Gap BUN Creatinine Estim Creat Clear Calc Estimated GFR POC Glucose 170 H Random Glucose Calcium B-Natriuretic Peptide 06/20/23 06/20/23 06/20/23 08:53 08:53 08:53 WBC RBC Cancelled Hgb 9.1 L Cancelled Hct 28.4 L Cancelled MCV 92.8 MCH MCHC RDW Plt Count MPV Absolute Nucleated RBC Nucleated RBC % (auto) PT INR Sodium Potassium Chloride Carbon Dioxide Anion Gap BUN Creatinine Estim Creat Clear Calc Estimated GFR POC Glucose Random Glucose Calcium B-Natriuretic Peptide 06/20/23 06/20/23 06/20/23 08:53 08:53 08:53 WBC RBC Hgb Hct MCV Cancelled MCH 29.7 Cancelled MCHC 32.0 Cancelled RDW 16.0 Plt Count MPV Absolute Nucleated RBC Nucleated RBC % (auto) PT INR Sodium Potassium Chloride Carbon Dioxide Anion Gap BUN Creatinine Estim Creat Clear Calc Estimated GFR POC Glucose Random Glucose Calcium B-Natriuretic Peptide 06/20/23 06/20/23 06/20/23 08:53 08:53 08:53 WBC RBC Hgb Hct MCV MCH MCHC RDW Cancelled Plt Count 283 Cancelled MPV 10.9 Cancelled Absolute Nucleated RBC 0.000 Nucleated RBC % (auto) PT INR Sodium Potassium Chloride Carbon Dioxide Anion Gap BUN Creatinine Estim Creat Clear Calc Estimated GFR POC Glucose Random Glucose Calcium B-Natriuretic Peptide 06/20/23 06/20/23 06/20/23 08:53 08:53 08:53 WBC RBC Hgb Hct MCV MCH MCHC RDW Plt Count MPV Absolute Nucleated RBC Cancelled Nucleated RBC % (auto) 0.0 Cancelled PT Cancelled 37.0 H D INR Cancelled Sodium Potassium Chloride Carbon Dioxide Anion Gap BUN Creatinine Estim Creat Clear Calc Estimated GFR POC Glucose Random Glucose Calcium B-Natriuretic Peptide 06/20/23 06/20/23 06/20/23 08:53 08:53 08:53 WBC RBC Hgb Hct MCV MCH MCHC RDW Plt Count MPV Absolute Nucleated RBC Nucleated RBC % (auto) PT INR 3.0 H D Sodium 137 Cancelled Potassium 5.0 Cancelled Chloride 104 Carbon Dioxide Anion Gap BUN Creatinine Estim Creat Clear Calc Estimated GFR POC Glucose Random Glucose Calcium B-Natriuretic Peptide 06/20/23 06/20/23 06/20/23 08:53 08:53 08:53 WBC RBC Hgb Hct MCV MCH MCHC RDW Plt Count MPV Absolute Nucleated RBC Nucleated RBC % (auto) PT INR Sodium Potassium Chloride Cancelled Carbon Dioxide 24 Cancelled Anion Gap 14 Cancelled BUN 74 H Creatinine Estim Creat Clear Calc Estimated GFR POC Glucose Random Glucose Calcium B-Natriuretic Peptide 06/20/23 06/20/23 06/20/23 08:53 08:53 08:53 WBC RBC Hgb Hct MCV MCH MCHC RDW Plt Count MPV Absolute Nucleated RBC Nucleated RBC % (auto) PT INR Sodium Potassium Chloride Carbon Dioxide Anion Gap BUN Cancelled Creatinine 1.97 H Cancelled Estim Creat Clear Calc 31.9 Cancelled Estimated GFR 33 POC Glucose Random Glucose Calcium B-Natriuretic Peptide 06/20/23 06/20/23 06/20/23 08:53 08:53 08:53 WBC RBC Hgb Hct MCV MCH MCHC RDW Plt Count MPV Absolute Nucleated RBC Nucleated RBC % (auto) PT INR Sodium Potassium Chloride Carbon Dioxide Anion Gap BUN Creatinine Estim Creat Clear Calc Estimated GFR Cancelled POC Glucose Random Glucose 255 H Cancelled Calcium 10.8 H Cancelled B-Natriuretic Peptide 940 H Discharge Plan Discharge Anticipated Discharge Date/Time: 06/20/23 10:34 Patient Disposition: Home Health Service Discharge Diagnosis: Acute on chronic HFpEF Acute on chronic blood loss anemia-epistaxis MERRY Supratherapeutic INR Referrals: Pb Lowe MD [Primary Care Provider] - 1 Week Discharge Medications: Continued atorvastatin 40 mg tablet 40 mg PO DAILY metformin 500 mg tablet 1,500 mg PO DAILY warfarin 2.5 mg tablet 2.5 mg PO SUMOTUWEFR@1800 clopidogrel 75 mg tablet 75 mg PO DAILY spironolactone 25 mg tablet 25 mg PO BID furosemide 20 mg tablet 40 mg PO BID lisinopril 40 mg tablet 40 mg PO DAILY glipizide 5 mg tablet 5 mg PO BID metoprolol tartrate 25 mg tablet 75 mg PO BID warfarin 2.5 mg Tablet 5 mg PO THSA@1800 Discharge Orders: Discharge Order (Routine); Ordered 06/20/23 Ordered By: Stella Menjivar Diet: Advance to usual diet Activity on Discharge: As tolerated Stand Alone Forms: Patient Portal Discharge page Care Plan Goals: Complete resolution of symptoms Monitor for any further signs of nosebleeds Health Concerns: Acute on chronic HFpEF Acute on chronic blood loss anemia-epistaxis MERRY Supratherapeutic INR Plan of Treatment: Follow-up with primary care provider as needed Take medications as prescribed Assessment: see discharge summary Discharge Date/Time: 06/20/23 12:31
--- NOTE | 2023-06-20 10:47 | W.MHC.F2F ---
Service Date Service Date: 06/20/23 Encounter Date of encounter: 06/20/23 Reasons for Services Signs and symptoms assessed: Heart failure with preserved ejection fraction, anemia secondary to epistaxis Reason for alf: CV/CP assess and/or care Homebound: Leaving the home is medically contraindicated at this time without the asist of a device and/or another person due th the listed conditions above and below. Reason homebound: unsteady gait / fall risk Certification: Based on the above findings, I certify that this patient is confined to the home and needs intermittent alf care, physical therapy and/or speech therapy, or continues to need occupational therapy. The patient is under my care, and I have initiated the establishment of the plan of care. The patient will be followed by a physician who will periodically review the plan of care. Time Spent With Patient Time: Total time managing care of this patient today ____ minutes.
[2023-06-20 11:23] VITALS: BP 134/58; PULSE 73; RESP 18; TEMP 36.2; O2SAT 98
--- NOTE | 2023-06-20 11:30 | MHC.CM.PN ---
order for home w/home health. Given Pt's insurance, broad search for in-home VNA initiated. Pending responses. CM to follow.
[2023-06-20 11:42] LABS: Glucose, Whole Blood 269 mg/dL (60-115)
--- NOTE | 2023-06-20 12:12 | MHC.CM.PN ---
[facility] is contracted w/patient's insurance, has accepted Pt on to service, and has notified that SOC will be tomorrow. Will notify medical.
== END 2023-06-20 12:31 | disposition home health service (06) | DRG 813 ==
LOC: HO.ED 12:17 → HO.EDOVER 12:59 → HO.IMC 15:58
PROVIDERS: Admitting Provider Family Medicine; Emergency Provider Emergency Medicine; PCP Internal Medicine; Visit Provider Nurse Practitioner Acute Care
DX: D68.32 Hemorrhagic disorder due to extrinsic circulating anticoagulants (principal); I50.33 Acute on chronic diastolic (congestive) heart failure; I13.0 Hypertensive heart and chronic kidney disease with heart failure and stage 1 through stage 4 chronic kidney disease, or unspecified chronic kidney disease; N17.9 Acute kidney failure, unspecified; D62 Acute posthemorrhagic anemia; I25.10 Atherosclerotic heart disease of native coronary artery without angina pectoris; N18.9 Chronic kidney disease, unspecified; E11.22 Type 2 diabetes mellitus with diabetic chronic kidney disease; R04.0 Epistaxis; T45.515A Adverse effect of anticoagulants, initial encounter; R79.1 Abnormal coagulation profile; Z89.511 Acquired absence of right leg below knee; Z87.891 Personal history of nicotine dependence; Z79.01 Long term (current) use of anticoagulants; Z79.02 Long term (current) use of antithrombotics/antiplatelets; Z79.84 Long term (current) use of oral hypoglycemic drugs; Z79.899 Other long term (current) drug therapy
CPT/HCPCS: 36415; 71045; 80048; 82947; 83880; 84484; 85025; 85027; 85610; 86850; 86900; 86901; 86923; 93005; 93306; 99285; J1940; P9016; Q9957

== ENCOUNTER → 2023-06-18 12:36 | Outpatient (BNV) | payer MEDICARE, SELFPAY | PROVIDERS: Admitting Provider Family Medicine; Emergency Provider Emergency Medicine; PCP Internal Medicine; Visit Provider Family Medicine | DX: D64.9 Anemia, unspecified (principal) | CPT/HCPCS: 99223; 99232; 99239; G0180 ==